=== PATIENT | male | born 1950 ===

== ENCOUNTER 2018-06-10 06:41 | Day surgery (SDC) | payer MEDICARE ==
--- NOTE | 2018-05-30 17:45 | HP ---
PREOPERATIVE HISTORY AND PHYSICAL: DATE OF ADMISSION/SURGERY: 06/10/18 - [facility] DATE OF OFFICE VISIT/ENCOUNTER: 05/26/18 ATTENDING SURGEON: Stephanie Damon MD * (DICTATED BY RADHA HOOD) INSERTER: Dr. Bustillo in [place]. PROCEDURE: Right wrist carpal tunnel release. CHIEF COMPLAINT: Numbness and tingling, bilateral hands. HISTORY OF PRESENT ILLNESS: This is a 68-year-old male, who complains of numbness and tingling in his bilateral hands, worse on the right than on the left. He has had trouble since 2008. He had a nerve conduction study in the past, which showed severe carpal tunnel syndrome on the right and moderate on the left. He wears braces, which sometimes gives him relief, but at this point , they are not terribly helpful. He complains of numbness in his thumb, index, and middle fingers, not his small finger. The numbness is present all the time at this point on the right hand, still intermittently on the left hand. He complains of weakness in his hand especially when he is using his thumb and he complains that his muscle is wasting away. He would like to pursue surgical intervention at this time. The patient has a significant cardiac medical history. He has atrial fibrillation and has had a triple bypass. He is on Pradaxa and we will plan on having him stay on Pradaxa perioperatively. We will also obtain clearance from his message clerk, Dr. Bustillo, in [place]. PAST MEDICAL HISTORY: 1. Diabetes. 2. Hypercholesterolemia. 3. Hypertension. 4. Atrial fibrillation. 5. COPD. 6. Nodule on lung. PAST SURGICAL HISTORY: 1. Triple coronary artery bypass graft. 2. Bilateral cataract removal. 3. Pilonidal cyst excision. 4. Tonsillectomy/adenoidectomy. CURRENT MEDICATIONS: 1. Aspirin low dose 81 mg daily. 2. Atorvastatin calcium 40 mg daily. 3. Carvedilol 6.25 mg twice a day. 4. Diltiazem CD 240 mg daily. 5. Glipizide ER 5 mg every morning. 6. Pradaxa 75 mg twice a day. 7. Protonix 20 mg daily. ALLERGIES: No known drug allergies. FAMILY MEDICAL HISTORY: Noncontributory. SOCIAL HISTORY: The patient is retired. He is a former smoker. He quit smoking in 2011. Prior to that, he smoked up to 4 packs per day for 45 years. He denies recreational drug use. He drinks alcohol on occasion. REVIEW OF SYSTEMS: Negative for general, cephalic, cardiovascular, respiratory , GI, , other musculoskeletal, integumentary, endocrine, neurologic, and hematologic symptoms. Infectious Disease: Negative for MRSA, hepatitis C, HIV. PHYSICAL EXAMINATION GENERAL: Well-developed, well-nourished, 68-year-old male, in no acute distress. VITAL SIGNS: Height 5 feet 9 inches, weight 315 pounds. Pulse rate 94, blood pressure 128/86. HEENT: Normocephalic, atraumatic. Pupils are equal, round, and reactive to light and accommodation. Throat is clear. NECK: Supple. No palpable lymph nodes. PULMONARY: Lungs are clear to auscultation bilaterally. No wheezes, rales, or rhonchi. CARDIOVASCULAR: Regular rate and rhythm. S1, S2. No murmurs, rubs, or gallops. No edema. ABDOMEN: Positive bowel sounds. Soft, nontender. NEUROLOGICAL: Alert and oriented x3. Cranial nerves II through XII are intact. MUSCULOSKELETAL: On exam of bilateral hands, he has thenar wasting on the right , but not the left. He has weakness with thumb abduction bilaterally. He has good range of motion in flexion, extension, pronation, and supination of his wrists. There is decreased sensation in his median nerve distribution on the right more than the left. Negative Tinel's sign at the ulnar nerves at the bilateral elbows. IMPRESSION: Bilateral carpal tunnel syndrome, worse on the right than on the left. PLAN: The patient is scheduled to undergo a right wrist carpal tunnel release with Dr. Damon on 06/10/18. He will return to the office 10 days postop for followup and suture removal. A prescription for Ultracet was e-scribed to the patient's pharmacy for postoperative pain management. RADHA HOOD [id number]/[facility] #: [id number] RICCI
[~2018-06-10 06:41] MED LIST: Buffered Lidocaine 0.9% SYRIN* 5 ML/SYR SYRINGE INTRADERM ONE; Famotidine IV* 10 MG/ML 2 ML (20 mg) IV ONE
[2018-06-10] MEDS ORDERED: Lidocaine 1% INJ* 10 MG/ML 30 ML SDV ONE (06:55)
[2018-06-10] MEDS ORDERED: Midazolam* 1 MG/ML 2 ML VIAL (2 MG) ONE (06:55)
[2018-06-10] MEDS ORDERED: fentaNYL* 50 MCG/ML 2 ML VIAL (100 MCG VIAL) ONE (06:55)
[2018-06-10] MEDS ORDERED: Naloxone* 0.4 MG/ML 1 ML VIAL IV PRN (07:10)
[2018-06-10] MEDS ORDERED: Acetaminophen TAB* 325 MG PO PRN (07:10)
[2018-06-10] MEDS ORDERED: oxyCODONE/Acetamin 5/325 MG* TAB PO PRN (07:10)
[2018-06-10] MEDS ORDERED: DiMENhydriNATE IV* 50 MG/ML VIAL IV PUSH PRN (07:10)
[2018-06-10] MEDS ORDERED: Ondansetron INJ* 2 MG/ML VIAL IV PRN (07:10)
[2018-06-10] MEDS ORDERED: fentaNYL* 50 MCG/ML 2 ML VIAL (100 MCG VIAL) IV PRN (07:10)
[2018-06-10] MEDS ORDERED: Famotidine IV* 10 MG/ML 2 ML (20 mg) ONE (07:14)
[2018-06-10] MEDS ORDERED: Propofol* 10 MG/ML 20 ML BTL IV PUSH ONE (07:54)
[2018-06-10 08:43] VITALS: BP 136/86
--- NOTE | 2018-06-13 10:53 | OP ---
CC: Dr. Damon. OPERATIVE REPORT: CORRECTION: "The surgical brace maker was not Charlotte Garcia. The surgical brace maker was Kiya." [id number]/[facility] #: [id number] [facility]
--- NOTE | 2018-06-13 10:53 | OP ---
CORRECTION ADDENDUM NOW INCLUDED ON THIS REPORT DATE OF OPERATION: 06/10/18 - [facility] DATE OF : 54 SURGEON: Stephanie Damon MD SHOE COVERER: Kiya Gloria CST ANESTHESIA: Local MAC. PRE-OP DIAGNOSIS: Right carpal tunnel syndrome. POST-OP DIAGNOSIS: Right carpal tunnel syndrome. OPERATIVE PROCEDURE: Right carpal tunnel release. INDICATIONS FOR PROCEDURE: Jaret is a 68-year-old man with numbness and tingling in the median nerve distribution of his right hand. He presents for right carpal tunnel release. ESTIMATED BLOOD LOSS: Zero. TOURNIQUET TIME: About 10 minutes. DESCRIPTION OF PROCEDURE: The patient was brought to the operating room, was given a sedation anesthetic and a local infiltration of 10 cc of 1% plain lidocaine in the palm of his right hand. The skin of his right hand and forearm was prepped and draped in the usual sterile fashion. The hand and forearm were exsanguinated and the tourniquet elevated to 250 mmHg. A longitudinal incision was made in the palm in line with the ring finger. We dissected through the subcutaneous tissue down to the transverse carpal ligament. The ligament was divided sharply with a knife and then more proximally with the scissors. The nerve was dissected free from the surrounding tissue and there was an area of moderate compression at the mid portion of the ligament. The wound was irrigated and the skin edges were reapproximated with 4-0 nylon suture. The wound was dressed with Xeroform, 4x4 , Webril, and an Jose F wrap. The patient tolerated the procedure well and was brought to the recovery room in good condition. CORRECTION ADDENDUM: "The salesperson surgical appliances was dustin Garcia. The salesperson surgical appliances was Kiya." [id number]/[facility] #: [id number] A- [id number]/[facility] #: [id number] RICCI
== END 2018-06-10 08:59 | disposition home or self-care (01) ==
LOC: OR 06:41
PROVIDERS: ATTEND Orthopaedic Surgery
DX: G56.01 Carpal tunnel syndrome, right upper limb (principal); I48.91 Unspecified atrial fibrillation; Z79.01 Long term (current) use of anticoagulants; Z87.891 Personal history of nicotine dependence; E11.9 Type 2 diabetes mellitus without complications; E78.00 Pure hypercholesterolemia, unspecified; I10 Essential (primary) hypertension; J44.9 Chronic obstructive pulmonary disease, unspecified; Z95.1 Presence of aortocoronary bypass graft; R91.1 Solitary pulmonary nodule
CPT/HCPCS: J2250; J2704; J3010

== ENCOUNTER → 2018-10-04 06:07 | Day surgery (SDC) | payer MEDICARE, MEDICAID ==
--- NOTE | 2018-09-21 06:38 | HP ---
PREOPERATIVE HISTORY AND PHYSICAL: DATE OF SURGERY/ADMISSION: 10/04/18 DATE OF OFFICE VISIT/ENCOUNTER: 09/05/18 ATTENDING SURGEON: Stephanie Damon MD * (DICTATED BY RADHA HOOD) PROCEDURE: Left wrist carpal tunnel release. CHIEF COMPLAINT: Numbness and tingling, left hand. HISTORY OF PRESENT ILLNESS: This is a 68-year-old male, who complains of numbness and tingling in his left hand since 2008. He had a nerve conduction study in the past, which showed moderate carpal tunnel syndrome on the left. He has tried bracing, which has been minimally helpful. Symptoms have been progressively getting worse and he is now experiencing some weakness in his hand. Back in May 2018, he underwent a right carpal tunnel release and did quite well with that. He has now consented to proceed with a left carpal tunnel release. The patient has a significant cardiac medical history. He has atrial fibrillation and has had a triple bypass. He is on Pradaxa and we will plan on having him stay on Pradaxa perioperatively. We will also obtain clearance from his firer automatic stoker, Dr. Bustillo in [place]. PAST MEDICAL HISTORY: 1. Diabetes. 2. Hypercholesterolemia. 3. Hypertension. 4. Atrial fibrillation. 5. COPD. 6. Nodule on lung. PAST SURGICAL HISTORY: 1. Right carpal tunnel release. 2. Triple coronary artery bypass graft. 3. Bilateral cataract removal. 4. Pilonidal cyst excision. 5. Tonsillectomy/adenoidectomy. CURRENT MEDICATIONS: 1. Aspirin 81 mg low dose daily. 2. Atorvastatin calcium 40 mg daily. 3. Carvedilol 6.25 mg twice a day. 4. Diltiazem CD 240 mg daily. 5. Glipizide ER 5 mg daily. 6. Pradaxa 75 mg twice a day. 7. Protonix 20 mg daily. ALLERGIES: No known drug allergies. FAMILY MEDICAL HISTORY: Noncontributory. SOCIAL HISTORY: The patient is retired. He is a former smoker. He quit smoking in 2011. Prior to that, he smoked up to 4 packs per day for 45 years. He denies recreational drug use. He drinks alcohol on occasion. REVIEW OF SYSTEMS: Negative for general, cephalic, cardiovascular, respiratory , GI, , other musculoskeletal, integumentary, endocrine, neurologic, and hematologic symptoms. Infectious Diseases: Negative for MRSA, hepatitis C, HIV. PHYSICAL EXAMINATION GENERAL: Well-developed, well-nourished 68-year-old male, in no acute distress. VITAL SIGNS: Height 5 feet 9 inches, weight 318 pounds. Pulse rate 72, blood pressure 128/80. HEENT: Normocephalic, atraumatic. Pupils are equal, round, and reactive to light and accommodation. Extraocular movements are intact. Throat is clear. NECK: Supple. No palpable lymph nodes. PULMONARY: Lungs are clear to auscultation bilaterally. No wheezes, rales, or rhonchi. CARDIOVASCULAR: Regular rate and rhythm. S1, S2. No murmurs, rub, or gallops. No edema. ABDOMEN: Positive bowel sounds. Soft, nontender. NEUROLOGICAL: Alert and oriented x3. Cranial nerves II through XII are intact. MUSCULOSKELETAL: On exam of his left hand, there is no visible thenar wasting, but he does have weakness with some abduction. He has good range of motion in his wrist and fingers. There is decreased sensation to light touch in the median nerve distribution in the left hand. He has a negative Tinel's sign at the wrist, but a positive median nerve compression test. EMG nerve conduction study shows moderate carpal tunnel syndrome on the left. IMPRESSION: Left carpal tunnel syndrome. PLAN: The patient is scheduled to undergo a left wrist carpal tunnel release with Dr. Damon on 10/04/18. He will return to the office in 10 days postop for followup and suture removal. A prescription for Ultracet was e-scribed to the patient's pharmacy for postoperative pain management. RADHA HOOD [id number]/[facility] #: [id number] RICCI
[~2018-10-04 06:07] MED LIST changes: -Buffered Lidocaine 0.9% SYRIN* 5 ML/SYR SYRINGE INTRADERM ONE; +Buffered Lidocaine 1% SYRIN* 1 ML/SYRINGE INTRADERM ONE; +DiMENhydriNATE IV* 50 MG/ML VIAL IV PUSH PRN; +Famotidine IV* 10 MG/ML 2 ML (20 mg) ONE; +Lactated Ringers 1000 ML Bag* 1,000 ML IV SCH; +Lidocaine 1% INJ* 10 MG/ML 30 ML SDV ONE; +Midazolam* 1 MG/ML 5 ML VIAL (5 MG) ONE; +Naloxone* 0.4 MG/ML 1 ML VIAL IV PRN; +Ondansetron ODT TAB* 4 MG ONE; +Ondansetron TAB* 4 MG PO ONE; +PROCHLORPERAZINE INJ 5 MG/ML 2 ML VIAL IV PRN; +Propofol* 10 MG/ML 20 ML BTL ONE; +fentaNYL* 50 MCG/ML 2 ML VIAL (100 MCG VIAL) IV PRN; +fentaNYL* 50 MCG/ML 2 ML VIAL (100 MCG VIAL) ONE; +oxyCODONE/Acetamin 5/325 MG* TAB PO PRN
[2018-10-04 09:20] VITALS: BP 129/81
--- NOTE | 2018-10-04 09:20 | OP ---
DATE OF OPERATION: 10/04/[address] - [facility] DATE OF : 54 SURGEON: Dr. Stephanie Damon. SENIOR NET ARCHITECT: RADHA Wall. ANESTHESIA: Local MAC. PRE-OP DIAGNOSIS: Left carpal tunnel syndrome. POST-OP DIAGNOSIS: Left carpal tunnel syndrome. OPERATIVE PROCEDURE: Left carpal tunnel release. ESTIMATED BLOOD LOSS: Zero. TOURNIQUET TIME: Approximately 8 minutes. INDICATIONS: Jaret is a 68-year-old man with numbness and tingling in the median nerve distribution of his left hand. He presents for left carpal tunnel release. DESCRIPTION OF PROCEDURE: The patient was brought to the operating room, was given a sedation anesthetic and a local infiltration of 10 cc of 1% plain lidocaine in the palm of his left hand. The skin of his left hand and forearm was prepped and draped in the usual sterile fashion. The hand and forearm were exsanguinated and the tourniquet elevated to 250 mmHg. A longitudinal incision was made in the palm in line with the ring finger. We dissected through the subcutaneous tissue down to the transverse carpal ligament. The ligament was divided sharply with a knife and then more proximally with the scissors. The nerve was dissected free from the surrounding tissue and there was an area of significant compression at the distal end of the ligament. The wound was irrigated and skin edges reapproximated with 4-0 nylon suture. The wound was dressed with Xeroform, 4x4, Webril, and an Jose F wrap. The patient tolerated the procedure well and was brought to the recovery room in good condition. [id number]/[facility] #: [id number] [facility]
== END | disposition home or self-care (01) ==
LOC: OR 06:07
PROVIDERS: ATTEND Orthopaedic Surgery
DX: G56.02 Carpal tunnel syndrome, left upper limb (principal); E11.9 Type 2 diabetes mellitus without complications; Z79.84 Long term (current) use of oral hypoglycemic drugs; Z87.891 Personal history of nicotine dependence; I10 Essential (primary) hypertension; J44.9 Chronic obstructive pulmonary disease, unspecified; I48.91 Unspecified atrial fibrillation; Z79.01 Long term (current) use of anticoagulants; R91.1 Solitary pulmonary nodule
CPT/HCPCS: A9270-GY; J2250; J2704; J3010